=== PATIENT | male | born 1965 | race Caucasian/White ===

== ENCOUNTER 2020-10-21 23:04 | Inpatient (IN) | payer MEDICAID, OTHER ==
--- NOTE | 2020-10-22 00:08 | ED ---
General Adult HPI - General Source: patient, EMS Mode of arrival: EMS <Kamaljit Yanes - Last Filed: 10/22/20 04:01> <Rd Salter - Last Filed: 10/22/20 12:46> - General Stated complaint: Mental Health Time Seen by Provider: 10/21/20 23:30 - History of Present Illness Initial comments: 51-year-old male with generally unknown past medical history but does include a degree of psychiatric history presents to the emergency room for medical evaluation. Patient went missing from his adult foster care facility called [facility] on October 08. He has not been using his insulin for his diabetes. He was found at his brother's house in [place] and was brought in by EMS. According to the facility patient has an HDL stating he needs to be at a facility for medical management as he does not care for himself. Patient has no other complaints at this time including shortness of breath, chest pain, abdominal pain, nausea or vomiting, headache, or visual changes. (Kamaljit Yanes) - Related Data Allergies Allergy/AdvReac Type Severity Reaction Status Date / Time No Known Allergies Allergy Verified 10/22/20 00:02 Review of Systems ROS Other: All systems not noted in ROS Statement are negative. <Kamaljit Yanes - Last Filed: 10/22/20 04:01> ROS Other: All systems not noted in ROS Statement are negative. <Rd Salter - Last Filed: 10/22/20 12:46> ROS Statement: Those systems with pertinent positive or pertinent negative responses have been documented in the HPI. Past Medical History Past Medical History: Diabetes Mellitus History of Any Multi-Drug Resistant Organisms: None Reported Past Surgical History: No Surgical Hx Reported Past Psychological History: Schizophrenia Smoking Status: Current every day smoker Past Alcohol Use History: None Reported Past Drug Use History: None Reported <Kamaljit Yanes - Last Filed: 10/22/20 04:01> Course <Kamaljit Yanes - Last Filed: 10/22/20 04:01> <Rd Salter - Last Filed: 10/22/20 12:46> Vital Signs 10/21/20 10/22/20 23:13 09:21 Temperature 98.7 F Pulse Rate 103 H Respiratory 18 Rate Blood Pressure 128/51 137/84 O2 Sat by Pulse 97 Oximetry - Reevaluation(s) Reevaluation #1: 10/22/20 00:08 I did attempt to get copy of this order from both patient's home laundrette owner as well as [facility]. They're both unwilling to fax this as they do not have fax machines at their house and it is nighttime. Recommend calling the public guardian who is not answering after two voicemails. 10/22/20 04:01 Patient's legal guardian did call back. Reports that he has been missing for 2 weeks and he does have an order an [facility] to be held at a medical [facility]. She is also unable to fax this order. Reports that he has not been caring for himself or taking his medications. Reports he has a history of schizophrenia. (Kamaljit Yanes) Reevaluation #2: 10/22/20 00:31 Spoke with legal guarding lead web application developer who also cannot send DELMAR but reports patient is court ordered to be in a medical facility. She reports that she is in the office at 8 AM and can send it at that time. (Kamaljit Yanes) Reevaluation #3: 10/22/20 12:45 The patient has been resting comfortably in the emergency department he was evaluated by the EPS service he will be admitted for inpatient evaluation and treatment of acute psychosis NOS a clinical certification was filled out by me. (Rd Salter) Medical Decision Making - Lab Data Result diagrams: 10/22/20 00:28 10/22/20 00:28 <Kamaljit Yanes - Last Filed: 10/22/20 04:01> - Lab Data Result diagrams: 10/22/20 00:28 10/22/20 00:28 <Rd Salter - Last Filed: 10/22/20 12:46> - Medical Decision Making Discussed this case with several individuals including patient's [employer] laundrette owner, [facility] employee, and public guardian. They'll report the patient does have an order to be held in a medical facility but they are all unable to fax's order. Report that patient is not taking his medications. Patient apparently has a history of schizophrenia. He is delusional at bedside stating he has a psychiatrist. Patient was medically cleared and seen by EPS. Currently recommending inpatient treatment given patient is not caring for himself, is having delusions, is not following court orders. (Kamaljit Yanes) - Lab Data Lab Results 10/22/20 10/22/20 10/22/20 Range/Units 00:28 00:28 00:28 WBC 7.9 (3.8-10.6) k/uL RBC 4.77 (4.30-5.90) m/uL Hgb 13.7 (13.0-17.5) gm/dL Hct 41.7 (39.0-53.0) % MCV 87.5 (80.0-100.0) fL MCH 28.8 (25.0-35.0) pg MCHC 32.9 (31.0-37.0) g/dL RDW 16.0 H (11.5-15.5) % Plt Count 173 (150-450) k/uL MPV 7.9 Neutrophils % 65 % Lymphocytes % 26 % Monocytes % 5 % Eosinophils % 2 % Basophils % 1 % Neutrophils # 5.1 (1.3-7.7) k/uL Lymphocytes # 2.1 (1.0-4.8) k/uL Monocytes # 0.4 (0-1.0) k/uL Eosinophils # 0.2 (0-0.7) k/uL Basophils # 0.0 (0-0.2) k/uL Sodium 139 (137-145) mmol/L Potassium 3.8 (3.5-5.1) mmol/L Chloride 104 (98-107) mmol/L Carbon Dioxide 25 (22-30) mmol/L Anion Gap 10 mmol/L BUN 24 H (9-20) mg/dL Creatinine 1.01 (0.66-1.25) mg/dL Est GFR (CKD-EPI)AfAm >90 (>60 ml/min/1.73 sqM) Est GFR (CKD-EPI)NonAf 85 (>60 ml/min/1.73 sqM) Glucose 211 H (74-99) mg/dL Calcium 9.6 (8.4-10.2) mg/dL Total Bilirubin 0.3 (0.2-1.3) mg/dL AST 27 (17-59) U/L ALT 31 (4-49) U/L Alkaline Phosphatase 70 (38-126) U/L Total Protein 7.3 (6.3-8.2) g/dL Albumin 4.2 (3.5-5.0) g/dL Urine Color Yellow Urine Appearance Clear (Clear) Urine pH 5.5 (5.0-8.0) Ur Specific [place] 1.025 (1.001-1.035) Urine Protein Negative (Negative) Urine Glucose (UA) 4+ H (Negative) Urine Ketones Trace H (Negative) Urine Blood Trace H (Negative) Urine Nitrite Negative (Negative) Urine Bilirubin Negative (Negative) Urine Urobilinogen 2.0 (<2.0) mg/dL Ur Leukocyte Esterase Negative (Negative) Urine RBC 1 (0-5) /hpf Urine WBC 1 (0-5) /hpf Urine Mucus Rare H (None) /hpf Serum Alcohol <10 mg/dL Coronavirus (PCR) (Not Detectd) 10/22/20 Range/Units 05:50 WBC (3.8-10.6) k/uL RBC (4.30-5.90) m/uL Hgb (13.0-17.5) gm/dL Hct (39.0-53.0) % MCV (80.0-100.0) fL MCH (25.0-35.0) pg MCHC (31.0-37.0) g/dL RDW (11.5-15.5) % Plt Count (150-450) k/uL MPV Neutrophils % % Lymphocytes % % Monocytes % % Eosinophils % % Basophils % % Neutrophils # (1.3-7.7) k/uL Lymphocytes # (1.0-4.8) k/uL Monocytes # (0-1.0) k/uL Eosinophils # (0-0.7) k/uL Basophils # (0-0.2) k/uL Sodium (137-145) mmol/L Potassium (3.5-5.1) mmol/L Chloride (98-107) mmol/L Carbon Dioxide (22-30) mmol/L Anion Gap mmol/L BUN (9-20) mg/dL Creatinine (0.66-1.25) mg/dL Est GFR (CKD-EPI)AfAm (>60 ml/min/1.73 sqM) Est GFR (CKD-EPI)NonAf (>60 ml/min/1.73 sqM) Glucose (74-99) mg/dL Calcium (8.4-10.2) mg/dL Total Bilirubin (0.2-1.3) mg/dL AST (17-59) U/L ALT (4-49) U/L Alkaline Phosphatase (38-126) U/L Total Protein (6.3-8.2) g/dL Albumin (3.5-5.0) g/dL Urine Color Urine Appearance (Clear) Urine pH (5.0-8.0) Ur Specific [place] (1.001-1.035) Urine Protein (Negative) Urine Glucose (UA) (Negative) Urine Ketones (Negative) Urine Blood (Negative) Urine Nitrite (Negative) Urine Bilirubin (Negative) Urine Urobilinogen (<2.0) mg/dL Ur Leukocyte Esterase (Negative) Urine RBC (0-5) /hpf Urine WBC (0-5) /hpf Urine Mucus (None) /hpf Serum Alcohol mg/dL Coronavirus (PCR) Not Detected (Not Detectd) Disposition Is patient prescribed a controlled substance at d/c from ED?: No Time of Disposition: 04:04 <Kamaljit Yanes - Last Filed: 10/22/20 04:01> <Rd Salter - Last Filed: 10/22/20 12:46> Clinical Impression: Delusional disorder, Acute psychosis Disposition: TRANSFER TO PSYCH HOSP/UNIT Condition: Fair
[2020-10-22] MEDS ORDERED: NICOTINE 14MG/24HR PATCH TRANSDERM STA (00:30)
[2020-10-22 00:52] LABS: Basophils % (A) 1 %; Eosinophils # (A) 0.2 k/uL (0-0.7); Eosinophils % (A) 2 %; HCT 41.7 % (39.0-53.0); HGB 13.7 gm/dL (13.0-17.5); Lymphocytes # (A) 2.1 k/uL (1.0-4.8); Lymphocytes % (A) 26 %; MCH 28.8 pg (25.0-35.0); MCHC 32.9 g/dL (31.0-37.0); MCV 87.5 fL (80.0-100.0); Mean Platelet Volume 7.9; Monocytes # (A) 0.4 k/uL (0-1.0); Monocytes % (A) 5 %; Neutrophils # (A) 5.1 k/uL (1.3-7.7); Neutrophils % (A) 65 %; Platelet Count 173 k/uL (150-450); RBC 4.77 m/uL (4.30-5.90); WBC 7.9 k/uL (3.8-10.6)
[2020-10-22 01:02] LABS: ALT 31 U/L (4-49); AST 27 U/L (17-59); African American GFR (CKD) >90 (>60 ml/min/1.73 sqM); Albumin 4.2 g/dL (3.5-5.0); Alcohol <10 mg/dL; Alkaline Phosphatase 70 U/L (38-126); Anion Gap 10 mmol/L; Blood Urea Nitrogen 24 mg/dL (9-20); Calcium 9.6 mg/dL (8.4-10.2); Carbon Dioxide 25 mmol/L (22-30); Chloride 104 mmol/L (98-107); Glucose 211 mg/dL (74-99); Non-African American GFR(CKD) 85 (>60 ml/min/1.73 sqM); Potassium 3.8 mmol/L (3.5-5.1); Sodium 139 mmol/L (137-145); Total Bilirubin 0.3 mg/dL (0.2-1.3); Total Protein 7.3 g/dL (6.3-8.2)
[2020-10-22 01:27] LABS: Appearance,Urine Clear (Clear); Bilirubin,Urine Negative (Negative); Blood,Urine Trace (Negative); Color,Urine Yellow; Glucose,Urine (UA) 4+ (Negative); Ketones,Urine Trace (Negative); Leukocyte Esterase,Urine Negative (Negative); Mucus,Urine Rare /hpf; Nitrite,Urine Negative (Negative); PH, Urine 5.5 (5.0-8.0); Protein,Urine Negative (Negative); RBC,Urine 1 /hpf (0-5); Specific Gravity,Urine 1.025 (1.001-1.035); WBC,Urine 1 /hpf (0-5)
[2020-10-22] MEDS ORDERED: LORazepam 1 MG TAB PO STA (01:37)
[2020-10-22] MEDS ORDERED: ACETAMINOPHEN TAB 325 MG TAB PO PRN (12:45)
[2020-10-22] MEDS ORDERED: MAGNESIUM HYDROXIDE 2,400 MG/10 ML CUP PO PRN (12:45)
[2020-10-22] MEDS ORDERED: LORazepam 1 MG TAB PO PRN (12:45)
[2020-10-22 12:46] LABS: Amphetamine Screen,Urine Not Detected (NotDetected); Barbiturate Screen,Urine Not Detected (NotDetected); Benzodiazepines Screen,Urine Not Detected (NotDetected); Cocaine Screen,Urine Not Detected (NotDetected); Methadone Screen, Urine Not Detected (NotDetected); Opiate Screen,Urine Not Detected (NotDetected); Oxycodone Screen, Urine Not Detected (NotDetected); Phencyclidine Screen,Urine Not Detected (NotDetected); Tricyclic Antidepressant,Urine Not Detected (NotDetected); Urn Cannabinoid Scrn Not Detected (NotDetected)
[2020-10-22] MEDS ORDERED: LORazepam 2 MG/ML INJ IM PRN (12:53)
[2020-10-22] MEDS ORDERED: HALOPERIDOL LACTATE 5 MG/ML 1 ML VIAL IM PRN (12:59)
[2020-10-22 13:00] LABS: Glucose,Whole Blood 204 mg/dL (75-99)
[2020-10-23] MEDS: MAG HYDROX/AL HYDROX/SIMETH 30 ML CUP PO PRN (03:24)
[2020-10-23 05:09] LABS: Cholesterol 206 mg/dL (<200); HDL Cholesterol 25 mg/dL (40-60); Triglycerides 470 mg/dL (<150)
[2020-10-23] MEDS: NICOTINE 14MG/24HR PATCH TRANSDERM SCH (07:43)
[2020-10-23 07:52] LABS: Glucose,Whole Blood 154 mg/dL (75-99)
--- NOTE | 2020-10-23 11:21 | P.HP ---
Psychiatric H&P - . H&P Date: 10/23/20 History & Physical: Allergies Allergy/AdvReac Type Severity Reaction Status Date / Time No Known Allergies Allergy Verified 10/22/20 15:04 Vital Signs Temp 97.7 F 10/23/20 03:25 Pulse 89 10/23/20 03:25 Resp 18 10/23/20 03:25 BP 150/67 10/23/20 03:25 Pulse Ox 98 10/22/20 13:40 Intake & Output 10/22/20 10/23/20 10/23/20 18:59 06:59 18:59 Weight 90.6 kg Laboratory Last Values WBC 7.9 k/uL (3.8-10.6) 10/22/20 00:28 RBC 4.77 m/uL (4.30-5.90) 10/22/20 00:28 Hgb 13.7 gm/dL (13.0-17.5) 10/22/20 00:28 Hct 41.7 % (39.0-53.0) 10/22/20 00:28 MCV 87.5 fL (80.0-100.0) 10/22/20 00:28 MCH 28.8 pg (25.0-35.0) 10/22/20 00:28 MCHC 32.9 g/dL (31.0-37.0) 10/22/20 00:28 RDW 16.0 % (11.5-15.5) H 10/22/20 00:28 Plt Count 173 k/uL (150-450) 10/22/20 00:28 MPV 7.9 10/22/20 00:28 Neutrophils % 65 % 10/22/20 00:28 Lymphocytes % 26 % 10/22/20 00:28 Monocytes % 5 % 10/22/20 00:28 Eosinophils % 2 % 10/22/20 00:28 Basophils % 1 % 10/22/20 00:28 Neutrophils # 5.1 k/uL (1.3-7.7) 10/22/20 00:28 Lymphocytes # 2.1 k/uL (1.0-4.8) 10/22/20 00:28 Monocytes # 0.4 k/uL (0-1.0) 10/22/20 00:28 Eosinophils # 0.2 k/uL (0-0.7) 10/22/20 00:28 Basophils # 0.0 k/uL (0-0.2) 10/22/20 00:28 Sodium 139 mmol/L (137-145) 10/22/20 00: Potassium 3.8 mmol/L (3.5-5.1) 10/22/20 00: Chloride 104 mmol/L (98-107) 10/22/20 00: Carbon Dioxide 25 mmol/L (22-30) 10/22/20 00: Anion Gap 10 mmol/L 10/22/20 00: BUN 24 mg/dL (9-20) H 10/22/20 00:28 Creatinine 1.01 mg/dL (0.66-1.25) 10/22/20: Est GFR (CKD-EPI)AfAm >90 (>60 ml/min/1.73 sqM) 10/22/20 00: Est GFR (CKD-EPI)NonAf 85 (>60 ml/min/1.73 sqM) 10/22/20 00: Glucose 211 mg/dL (74-99) H 10/22/20 00:28 POC Glucose (mg/dL) 154 mg/dL (75-99) H 10/23/20 07:48 POC Glu Assembly Line Leader ID Reva Moe 10/23/20 07:48 Calcium 9.6 mg/dL (8.4-10.2) 10/22/20 00:28 Total Bilirubin 0.3 mg/dL (0.2-1.3) 10/22/20 00:28 AST 27 U/L (17-59) 10/22/20 00: ALT 31 U/L (4-49) 10/22/20 00:28 Alkaline Phosphatase 70 U/L (38-126) 10/22/20 00:28 Total Protein 7.3 g/dL (6.3-8.2) 10/22/20: Albumin 4.2 g/dL (3.5-5.0) 10/22/20 00:28 Triglycerides 470 mg/dL (<150) H 10/22/20 00:28 Cholesterol 206 mg/dL (<200) H 10/22/20 00:28 LDL Cholesterol, Calc mg/dL (0-99) 10/22/20 00:28 HDL Cholesterol 25 mg/dL (40-60) L 10/22/20 00:28 Urine Color Yellow 10/22/20 00: Urine Appearance Clear (Clear) 10/22/20: Urine pH 5.5 (5.0-8.0) 10/22/20:28 Ur Specific [place] 1.025 (1.001-1.035) 10/22/20:28 Urine Protein Negative (Negative) 10/22/20: Urine Glucose (UA) 4+ (Negative) H 10/22/20:28 Urine Ketones Trace (Negative) H 10/22/20 00: Urine Blood Trace (Negative) H 10/22/20: Urine Nitrite Negative (Negative) 10/22/20: Urine Bilirubin Negative (Negative) 10/22/20: Urine Urobilinogen 2.0 mg/dL (<2.0) 10/22/20:28 Ur Leukocyte Esterase Negative (Negative) 10/22/20: Urine RBC 1 /hpf (0-5) 10/22/20: Urine WBC 1 /hpf (0-5) 10/22/20 00:28 Urine Mucus Rare /hpf (None) H 10/22/20 00:28 Urine Opiates Screen Not Detected (NotDetected) 10/22/20 12:24 Ur Oxycodone Screen Not Detected (NotDetected) 10/22/20 12:24 Urine Methadone Screen Not Detected (NotDetected) 10/22/20 12:24 Ur Propoxyphene Screen Not Detected (NotDetected) 10/22/20 12:24 Ur Barbiturates Screen Not Detected (NotDetected) 10/22/20 12:24 U Tricyclic Antidepress Not Detected (NotDetected) 10/22/20 12:24 Ur Phencyclidine Scrn Not Detected (NotDetected) 10/22/20 12:24 Ur Amphetamines Screen Not Detected (NotDetected) 10/22/20 12:24 U Methamphetamines Scrn Not Detected (NotDetected) 10/22/20 12:24 U Benzodiazepines Scrn Not Detected (NotDetected) 10/22/20 12:24 Urine Cocaine Screen Not Detected (NotDetected) 10/22/20 12:24 U Marijuana (THC) Screen Not Detected (NotDetected) 10/22/20 12:24 Serum Alcohol <10 mg/dL 10/22/20 00:28 Coronavirus (PCR) Not Detected (Not Detectd) 10/22/20 05:50 10/23/20 11:02 Reason for admission: This patient has a history of schizophrenia. He was not caring for himself and not taking his medication. He was missing for 2 weeks. According to his legal guardian he has a order at [facility] for him to be held at a medical facility. History of present illness: This 51-year-old male who is not keeping up with his hygiene and grooming was seen in his room. He told me he did not need to see anybody. He stated he does not want to talk about anything. He was admitted because of not taking his medication, not following the court order and was missing for 2 weeks. 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 He stated police brought me here and then said "ambulance brought him here". He stated he is a better doctor than anybody else and can treat himself so there is no need for him to talk to anybody. Past history: This patient refused to provide any history of past psychiatric problems. I tried to go back in his record however I could not find any information on him from any previous admissions. Family history: He denied any history of alcohol or drugs in the family. He stated that "I should stop bothering him because there is nothing wrong with him". He stated he wants to go to sleep and wants me to leave him alone. Medical history: He does not appear to be in any acute physical distress but he refused to talk about any medical problems if he has any. Social history: This patient has a legal guardian. His legal guardian reported that he has been missing for 2 weeks and he does have a court order at [facility] for him to be held at a medical facility. Patient did report to the emergency room doctor that he has schizophrenia and has been taking medication for that. It is unclear but medication if any he was taking. Medication history: Patient refused to provide any such history at present. Substance abuse history: Patient refused to provide any history of alcohol or drug abuse or any other substance abuse disorder history. Legal history: Patient denied if he has any problem with law or police. ALLERGIES: He denied if he was ALLERGIC to any medications. Mental status examination: This patient is somewhat drowsy and has very poor hygiene and grooming. His matt is a long and unkempt. He is oriented to time place and person. He has adequate speech and language skills but he does not want to communicate and does not want to talk about any of his problems. His behavior is uncooperative his mood is blank and affect is flattened. He refused to give me any history of any auditory or visual hallucinations. His impulse control is poor and his judgment is poor as well. I was not able to assess his memory and other cognitive function because he will not cooperate with me. He is at increased risk for hurting himself. Diagnostic impression: Schizophrenia chronic undifferentiated type Treatment recommendations: He will be prescribed an antipsychotic medication. He will be encouraged to participate in milieu activities. He will be encouraged to take care of his hygiene and grooming.
[2020-10-23 18:26] LABS: Hemoglobin A1C 6.1 % (4.0-6.0)
[2020-10-23] MEDS: haloperidoL 5 MG TAB PO SCH (21:17)
--- NOTE | 2020-10-24 03:49 | P.MDCNMH ---
History of Present Illness H&P Date: 10/23/20 Chief Complaint: medical evaluation 51-year-old male claims that he has no past medical history. 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 Patient was interested in discussing his medical concerns with me but then he started talking about having toothpicks in his body running inside his blood vessels and one stuck inside his toes and he is asking about my opinion on the best way to remove them. Patient was also complaining of some itching in his upper back and erythema RV ring patient medical records it seems like patient has history of possible diabetes, blood work did reflect hyperlipidemia. Otherwise patient did not admit to any past medical history Other than the complaint above regarding the toothpicks, patient denies any medical concerns Review of Systems ROS unobtainable: due to mental status Past Medical History Past Medical History: Diabetes Mellitus Additional Past Medical History / Comment(s): He denied having diabetes. Reported numbness in right foot since 2004. 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 Past Psychological History: Schizophrenia Smoking Status: Current every day smoker Past Alcohol Use History: None Reported Past Drug Use History: None Reported Medications and Allergies Home Medications Medication Instructions Recorded Confirmed Type Unable To Assess [Unable to Assess] 10/22/20 10/22/20 History Allergies Allergy/AdvReac Type Severity Reaction Status Date / Time No Known Allergies Allergy Verified 10/22/20 15:04 Physical Exam Constitutional: No acute distress, conversant, pleasant Eyes: Anicteric sclerae, moist conjunctiva, Pupils equal round reactive to light ENMT: NC/AT Oropharynx clear, no erythema, or exudates Neck: Supple, FROM, no masses, or JVD No carotid bruits No thyromegaly Lungs: Clear to auscultation Clear to percussion Normal respiratory effort, no accessory muscle use Cardiovascular: Heart regular in rate and rhythm, No murmurs, gallops, or rubs No peripheral edema Abdominal: Soft Nontender, no guarding, rebound or rigidity Abdomen moving with respiration Normoactive bowel sounds No hepatomegaly, No splenomegaly No palpable mass No abdominal wall hernia noted Skin: Normal temperature, tone, texture, turgor No induration No subcutaneous nodules No rash, lesions No ulcers Extremities: Upper back examination did not show any evidence of erythema or rashes that the patient was claiming that he had . Amputation of the right fourth toe , No digital cyanosis No clubbing Pedal pulses intact and symmetrical Radial pulses intact and symmetrical No calf tenderness Psychiatric: Alert and oriented to person, place and time Appropriate affect fair judgement Neuro Muscles Strength 5/5 in all 4 extremities Sensation to light touch grossly present throughout Cranial nerves II-XII grossly intact No focal sensory deficits Lymphatics: no palpable cervical or supraclavicular , or inguinal lymph nodes Cranial Nerve Examination - Cranial Nerves Cranial Nerve II- Optic: Intact Cranial Nerve III- Oculomotor: Intact Cranial Nerve IV- Trochlear: Intact Cranial Nerve V- Trigeminal: Intact Cranial Nerve - Abducens: Intact Cranial Nerve VII- Facial: Intact Cranial Nerve VIII- Auditory: Intact Cranial Nerve IX- Glossopharyngeal: Intact Cranial Nerve X- Vagus: Intact Cranial Nerve XI- Accessory: Intact Cranial Nerve XII- Hypoglossal: Intact Results CBC & Chem 7: 10/22/20 00:28 10/22/20 00:28 Labs: Abnormal Lab Results - Last 24 Hours (Table) 10/22/20 10/22/20 10/23/20 Range/Units 00:28 00:28 07:48 POC Glucose (mg/dL) 154 H (75-99) mg/dL Hemoglobin A1c 6.1 H (4.0-6.0) % Triglycerides 470 H (<150) mg/dL Cholesterol 206 H (<200) mg/dL HDL Cholesterol 25 L (40-60) mg/dL Assessment and Plan Assessment: Prediabetes versus diabetes mellitus well-controlled I suggest starting the patient on metformin 500 twice a day Continue to follow up on A1c and blood sugars Hyperlipidemia I suggest starting the patient on atorvastatin 10 mg daily at bedtime and to follow up with outpatient PCP Delusional ideation management per psych Thank you for allowing us to participate in the care of this patient. We will follow peripherally. Do not hesitate to contact us with questions. Someone can be reached from the [facility] [place] hospitalist group at all hours of the day at [phone].
[2020-10-24 08:14] LABS: Glucose,Whole Blood 145 mg/dL (75-99)
[2020-10-24] MEDS: haloperidoL 5 MG TAB PO SCH ×2 (08:15→22:23)
[2020-10-24] MEDS: metFORMIN 500 MG TAB PO SCH ×2 (08:15→16:34)
[2020-10-24] MEDS: NICOTINE 14MG/24HR PATCH TRANSDERM SCH (08:15)
--- NOTE | 2020-10-24 13:17 | P.PN ---
Progress Note - Text Progress Note Date: 10/24/20 Interval History: Patient was seen in his room and was non directable. He is laying in his bed covered with sheets and refuses to talk to me. This patient was missing from his adult foster care facility for the last 2 weeks. He was not using his insulin for his diabetes. He was brought here by emergency medical services. He has a court order for him to be held at a medical facility. This patient has a history of schizophrenia. Patient has been compliant with meds. Mental Status Exam: General Appearance: Patient appears to be lethargic and uncooperative. Behavior: Patient is not showing any agitated behaviors. Speech: Patient's speech is a hardly productive. Mood/Affect: Mood is blank and affect is flat. Suicidality/Homicidality: Patient denies having any suicidal or homicidal ideation intent or plan. Perceptions: Patient denies any visual hallucinations and denies any auditory hallucinations Though content/process: Patient has severe disorder of thought process. Memory and concentration: AOX3, memory and concentration are poor Judgment and insight: Patient has no insight into his problems and his judgment is impaired Assessment This patient continues to show severe symptoms of psychosis and is a high risk for hurting himself. Plan: -Patient continues to meet criteria for inpatient psychiatric admission for symptom stabilization and safety. -Medications: Continue medication as prescribed -When necessary Ativan and Haldol for agitation/aggression. -SW on board for discharge planning. Encouraged the patient to participate in milieu.
[2020-10-24] MEDS ORDERED: ATORVASTATIN 10 MG TAB PO SCH (21:00)
[2020-10-25] MEDS: metFORMIN 500 MG TAB PO SCH ×2 (09:04→17:33)
[2020-10-25] MEDS: NICOTINE 14MG/24HR PATCH TRANSDERM SCH (09:04)
[2020-10-25] MEDS: haloperidoL 5 MG TAB PO SCH ×2 (09:04→21:34)
[2020-10-25] MEDS ORDERED: HALOPERIDOL LACTATE 5 MG/ML 1 ML VIAL IM PRN (11:46)
--- NOTE | 2020-10-25 11:50 | P.PN ---
Progress Note - Text Progress Note Date: 10/25/20 Interval History: Patient was seen resting in bed, and refuse to get out of bed to talk with this provider. The patient answered questions intermittently. Currently, the patient is refusing to provide any history of events leading to this hospitalization. 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 He is currently denying any suicidal or homicidal ideation, intention, and/or plan. He is not reporting any auditory or visual hallucinations. He appears to be very guarded and refuses to elaborate on any other psychiatric symptoms. Mental Status Exam: General Appearance: Patient appears to be stated age is alert, undirectable, and uncooperative. He appears disheveled. Behavior: Psychomotor slowing is evident. The patient makes no eye contact. He remains covered with his blankets covering his eyes with a shirt. Speech: Patient's speech is nonspontaneous, minimal, monotone. Mood/Affect: Mood is irritable. Affect is mood congruent and obstinate. He is very guarded. Suicidality/Homicidality: Patient denies having any suicidal or homicidal ideation intent or plan. Perceptions: Patient denies any visual hallucinations and denies any auditory hallucinations Though content/process: Appears to endorse some grandiose and bizarre delusions. Memory and concentration: unable to assess. Judgment and insight: very poor Assessment Schizophrenia Plan: -Patient continues to meet criteria for inpatient psychiatric admission for symptom stabilization and safety. Patient is currently under court order for mental health treatment. -Medications: Continue Haldol 5 mg by mouth twice a day for psychosis. As the patient is c urrently under a court order, if the patient refuses Haldol, he is due to receive Haldol lactate 3 mg IM. We will gradually titrate his medications and response to target symptoms. -When necessary Ativan and Haldol for agitation/aggression. -NRT - nicotine patch -SW on board for discharge planning. Encouraged the patient to participate in milieu.
[2020-10-25 13:01] LABS: Glucose,Whole Blood 253 mg/dL (75-99)
[2020-10-25 17:42] LABS: Glucose,Whole Blood 214 mg/dL (75-99)
[2020-10-25 20:17] LABS: Glucose,Whole Blood 251 mg/dL (75-99)
[2020-10-25] MEDS: INSULIN ASPART (NovoLOG) 100 UNIT/ML VIAL SQ SCH (21:34)
[2020-10-25] MEDS: ATORVASTATIN 40 MG TAB PO SCH (21:34)
[2020-10-25 21:38] LABS: Glucose,Whole Blood 284 mg/dL (75-99)
[2020-10-26 08:10] LABS: Glucose,Whole Blood 253 mg/dL (75-99)
[2020-10-26] MEDS: metFORMIN 500 MG TAB PO SCH ×2 (08:10→17:05)
[2020-10-26] MEDS: INSULIN ASPART (NovoLOG) 100 UNIT/ML VIAL SQ SCH ×4 (08:11→20:03)
[2020-10-26] MEDS: NICOTINE 14MG/24HR PATCH TRANSDERM SCH (08:13)
[2020-10-26] MEDS: haloperidoL 5 MG TAB PO SCH ×2 (08:13→22:50)
--- NOTE | 2020-10-26 11:44 | P.PN ---
Progress Note - Text Progress Note Date: 10/26/20 Interval History: Patient was seen resting in bed, and refuse to get out of bed to talk with this provider. The patient continues to be intermittently cooperative with this provider. Yesterday afternoon, the patient was calm and friendly and polite at this morning continues to be obstinate and refuses to participate in the psychiatric interview with much substance. He is not reporting any suicidal or homicidal ideation, intention, and/or plan. He is not reporting any auditory or visual hallucinations. He is denying any paranoia or other delusions at this time. He refuses to elaborate on his mental health history. He has been refusing medications despite being court ordered. Mental Status Exam: General Appearance: Patient appears to be stated age is alert, undirectable, and uncooperative. He appears disheveled. Behavior: Psychomotor slowing is evident. The patient makes no eye contact. He remains covered with his blankets covering his eyes with a shirt. Speech: Patient's speech is nonspontaneous, minimal, monotone. Mood/Affect: Mood is irritable. Affect is mood congruent and obstinate. patient continues to be guarded. Suicidality/Homicidality: Patient denies having any suicidal or homicidal ideation intent or plan. Perceptions: Patient denies any visual hallucinations and denies any auditory hallucinations Though content/process: Appears to endorse some grandiose and bizarre delusions. Memory and concentration: unable to assess. Judgment and insight: very poor Assessment Schizophrenia Plan: -Patient continues to meet criteria for inpatient psychiatric admission for symptom stabilization and safety. Patient is currently under court order for mental health treatment. -Medications: Continue Haldol 5 mg by mouth twice a day for psychosis. As the patient is currently under a court order, if the patient refuses Haldol, he is due to receive Haldol lactate 3 mg IM. We will gradually titrate his medications and response to target symptoms. -When necessary Ativan and Haldol for agitation/aggression. -NRT - nicotine patch -SW on board for discharge planning. Encouraged the patient to participate in milieu.
[2020-10-26 12:54] LABS: Glucose,Whole Blood 333 mg/dL (75-99)
[2020-10-26 12:56] LABS: Glucose,Whole Blood 324 mg/dL (75-99)
[2020-10-26 17:34] LABS: Glucose,Whole Blood 275 mg/dL (75-99)
[2020-10-26 20:03] LABS: Glucose,Whole Blood 313 mg/dL (75-99)
[2020-10-26] MEDS: ATORVASTATIN 40 MG TAB PO SCH (22:50)
[2020-10-27] MEDS: MAG HYDROX/AL HYDROX/SIMETH 30 ML CUP PO PRN (00:33)
[2020-10-27] MEDS: metFORMIN 500 MG TAB PO SCH ×2 (08:05→17:40)
[2020-10-27] MEDS: INSULIN ASPART (NovoLOG) 100 UNIT/ML VIAL SQ SCH ×4 (08:09→19:56)
[2020-10-27] MEDS: haloperidoL 5 MG TAB PO SCH ×3 (08:10→21:11)
[2020-10-27 08:13] LABS: Glucose,Whole Blood 192 mg/dL (75-99)
[2020-10-27] MEDS: NICOTINE 14MG/24HR PATCH TRANSDERM SCH (08:17)
[2020-10-27] MEDS ORDERED: HALOPERIDOL LACTATE 5 MG/ML 1 ML VIAL IM PRN (11:08)
--- NOTE | 2020-10-27 11:12 | P.PN ---
Progress Note - Text Progress Note Date: 10/27/20 Interval History: Patient was seen resting in bed, and refused to get out of bed to talk with this provider. 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 When asked him about the events in his hospitalization confronting them at the fact that he was in a intermediate and disappeared for 2 weeks, but patient refuses to further elaborate. He is currently not reporting any suicidal or homicidal ideation, intention, and/or plan. He is not reporting any auditory or visual hallucinations. He continues to be confrontational with this provider and states that he will soon this hospital for "penetrating me." The patient has been receiving Haldol orally after being informed that if he does not do so, he would be receiving IM formulation as he is under court order. Mental Status Exam: General Appearance: Patient appears to be stated age is alert, undirectable, and uncooperative. He appears disheveled. Behavior: Psychomotor slowing is evident. The patient makes no eye contact. He remains covered with his blankets covering his eyes with a shirt. Ambulates with a walker on the unit. Speech: Patient's speech is nonspontaneous, with normal rate, tone, and volume. Mood/Affect: Mood is irritable. Affect is mood congruent and facetious. Patient continues to be guarded. Suicidality/Homicidality: Patient denies having any suicidal or homicidal ideation intent or plan. Perceptions: Patient denies any visual hallucinations and denies any auditory hallucinations Though content/process: Appears to endorse some grandiose and bizarre delusions. Memory and concentration: unable to assess. Judgment and insight: very poor Assessment Schizophrenia Plan: -Patient continues to meet criteria for inpatient psychiatric admission for symptom stabilization and safety. Patient is currently under court order for mental health treatment. -Medications: Continue Haldol 5 mg by mouth twice a day for psychosis. As the patient is currently under a court order, if the patient refuses Haldol, Increased IM Haldol lactate to 4 mg. We will gradually titrate his medications and response to target symptoms. Start Depakote ER 500 mg daily at bedtime for mood stabilization. -When necessary Ativan and Haldol for agitation/aggression. -NRT - nicotine patch -SW on board for discharge planning. Encouraged the patient to participate in milieu.
[2020-10-27 12:46] LABS: Glucose,Whole Blood 175 mg/dL (75-99)
[2020-10-27 17:35] LABS: Glucose,Whole Blood 275 mg/dL (75-99)
[2020-10-27 19:55] LABS: Glucose,Whole Blood 339 mg/dL (75-99)
[2020-10-27] MEDS: ATORVASTATIN 40 MG TAB PO SCH ×2 (21:11→21:18)
[2020-10-27] MEDS: DIVALPROEX ER 500 MG TAB.ER.24H PO SCH ×2 (21:11→21:18)
[2020-10-28] MEDS: haloperidoL 5 MG TAB PO SCH ×2 (08:10→21:53)
[2020-10-28] MEDS: NICOTINE 14MG/24HR PATCH TRANSDERM SCH (08:10)
[2020-10-28] MEDS: metFORMIN 500 MG TAB PO SCH ×2 (08:11→19:00)
[2020-10-28] MEDS: INSULIN ASPART (NovoLOG) 100 UNIT/ML VIAL SQ SCH ×4 (08:12→20:16)
[2020-10-28 08:13] LABS: Glucose,Whole Blood 228 mg/dL (75-99)
--- NOTE | 2020-10-28 10:48 | P.PN ---
Progress Note - Text Progress Note Date: 10/28/20 Interval History: Patient was seen resting in bed, and refused to get out of bed to talk with this provider. Patient was informed that he is likely to be discharged tomorrow after discussion with his family revealed that he is likely at baseline. The patient is currently not reporting any suicidal or homicidal ideation, intention, and/or plan. He is not reporting any auditory or visual hallucinations. He is denying any paranoia or other delusions. The patient continues to refuse any medications and takes the Haldol only under duress when informed that he is under a court order and will receive the injectable form if he refuses oral medication. He refuses the oral Depakote. Patient was informed that he'll be receiving Haldol Decanoate 100 mg IM today. Mental Status Exam: General Appearance: Patient appears to be stated age is alert, undirectable, and uncooperative. He appears disheveled. Behavior: Psychomotor slowing is evident. The patient makes no eye contact. He remains covered with his blankets covering his eyes with a shirt. Ambulates with a walker on the unit. Speech: Patient's speech is nonspontaneous, with normal rate, tone, and volume. Mood/Affect: Mood is irritable. Affect is mood congruent and facetious. Patient continues to be guarded. Suicidality/Homicidality: Patient denies having any suicidal or homicidal ideation intent or plan. Perceptions: Patient denies any visual hallucinations and denies any auditory hallucinations Though content/process: Appears to endorse some grandiose and bizarre delusions. Memory and concentration: unable to assess. Judgment and insight: very poor Assessment Schizophrenia Plan: -Patient continues to meet criteria for inpatient psychiatric admission for symptom stabilization and safety. Patient is currently under court order for mental health treatment. -Medications: Continue Haldol 5 mg by mouth twice a day for psychosis. The patient refuses Haldol, he'll receive injectable form as he is under court order. Start Haldol Decanoate 100 mg IM [id number] today. Discontinue Depakote due to nonadherence -When necessary Ativan and Haldol for agitation/aggression. -NRT - nicotine patch -SW on board for discharge planning. Encouraged the patient to participate in milieu.
[2020-10-28 12:50] LABS: Glucose,Whole Blood 263 mg/dL (75-99)
[2020-10-28] MEDS ORDERED: HALOPERIDOL DECANOATE 100 MG/ML 1 ML VIAL IM SCH (17:00)
[2020-10-28 17:58] LABS: Glucose,Whole Blood 303 mg/dL (75-99)
[2020-10-28 19:42] LABS: Glucose,Whole Blood 316 mg/dL (75-99)
[2020-10-28] MEDS: ATORVASTATIN 40 MG TAB PO SCH (21:53)
[2020-10-29] MEDS: MAG HYDROX/AL HYDROX/SIMETH 30 ML CUP PO PRN ×2 (00:46→05:38)
[2020-10-29 07:14] VITALS: RESP 16
[2020-10-29] MEDS: INSULIN ASPART (NovoLOG) 100 UNIT/ML VIAL SQ SCH ×4 (08:30→21:06)
[2020-10-29] MEDS: metFORMIN 500 MG TAB PO SCH ×2 (08:31→18:00)
[2020-10-29] MEDS: NICOTINE 14MG/24HR PATCH TRANSDERM SCH (08:32)
[2020-10-29 08:36] LABS: Glucose,Whole Blood 185 mg/dL (75-99)
[2020-10-29] MEDS: haloperidoL 5 MG TAB PO SCH ×2 (09:13→22:08)
--- NOTE | 2020-10-29 09:14 | P.PN ---
Progress Note - Text Progress Note Date: 10/29/20 Interval History: Patient was seen resting in bed, and refused to get out of bed to talk with this provider. The patient received his Haldol Decanoate 100 mg IM shot yesterday. He continues to refuse any oral antipsychotic medications. He is not reporting any significant side effects of this injection. He reports that he is sleeping well and eating well. He is not reporting any suicidal or homicidal ideation, intention, and/or plan. He is not reporting any auditory or visual hallucinations. He denies any paranoia or other delusions. The patient continues to request for discharge. He states that he has a cousin he can stay with upon discharge. There is concern about this discharge plan as the patient has a history of disappearing for weeks on end impulsively. Mental Status Exam: General Appearance: Patient appears to be stated age is alert, directable, and cooperative. He appears disheveled. Behavior: Psychomotor slowing is evident. The patient makes no eye contact. He remains covered with his blankets covering his eyes with a shirt. Ambulates w ith a walker on the unit. Speech: Patient's speech is nonspontaneous, with normal rate, tone, and volume. Mood/Affect: Mood is "okay." Affect is blunted. Suicidality/Homicidality: Patient denies having any suicidal or homicidal ideation intent or plan. Perceptions: Patient denies any visual hallucinations and denies any auditory hallucinations Though content/process: The patient is currently denying any paranoid or delusional thought content. Thought process appears to be linear and logical in short conversation. Memory and concentration: Grossly intact for purposes of this session. Judgment and insight: very poor Assessment Schizophrenia Plan: -Patient continues to meet criteria for inpatient psychiatric admission for symptom stabilization and safety. Patient is currently under court order for mental health treatment. -Medications: Patient received Haldol Decanoate 100 mg IM yesterday. It is recommended that the patient receive this dose every 2-3 weeks as the patient is going to refuse any oral medications. We will discontinue oral Haldol. -When necessary Ativan and Haldol for agitation/aggression. -NRT - nicotine patch -SW on board for discharge planning. Encouraged the patient to participate in milieu.
[2020-10-29 12:44] LABS: Glucose,Whole Blood 218 mg/dL (75-99)
[2020-10-29 17:46] LABS: Glucose,Whole Blood 231 mg/dL (75-99)
[2020-10-29 20:31] LABS: Glucose,Whole Blood 332 mg/dL (75-99)
[2020-10-29] MEDS: ATORVASTATIN 40 MG TAB PO SCH (22:07)
[2020-10-30] MEDS: MAG HYDROX/AL HYDROX/SIMETH 30 ML CUP PO PRN (01:25)
[2020-10-30] MEDS: INSULIN ASPART (NovoLOG) 100 UNIT/ML VIAL SQ SCH ×4 (08:33→20:11)
[2020-10-30 08:34] LABS: Glucose,Whole Blood 218 mg/dL (75-99)
[2020-10-30] MEDS: haloperidoL 5 MG TAB PO SCH ×2 (08:34→21:19)
[2020-10-30] MEDS: metFORMIN 500 MG TAB PO SCH ×2 (08:34→17:57)
[2020-10-30 13:23] LABS: Glucose,Whole Blood 220 mg/dL (75-99)
[2020-10-30 17:56] LABS: Glucose,Whole Blood 242 mg/dL (75-99)
[2020-10-30 20:06] LABS: Glucose,Whole Blood 297 mg/dL (75-99)
[2020-10-30] MEDS: ATORVASTATIN 40 MG TAB PO SCH (21:19)
--- NOTE | 2020-10-30 23:00 | PN ---
PROGRESS NOTE DATE OF SERVICE: 10/30/2020. CHIEF COMPLAINT: The patient was functioning poorly. He was not taking medications or following through with court ordered treatment, but had been missing from his [facility] for 2 weeks. INTERVAL HISTORY: The patient has been doing fair. He had a quiet day yesterday. He spends a fair amount of time in his room. He will come out to a limited extent. He will wander around some. He will pay some attention to things going on around him. He does not really interact too much with others. He has been accepting of Haldol Decanoate though elects not to take any oral medications. He did not attend groups yesterday. He slept about 5 hours last night by nursing documentation. Today, he has been doing about the same. He has been out a few times wandering the unit. He will interact appropriately with staff. He does not socialize much. He has a quiet manner. He does not voice any complaints or concerns. When I talked to him, he did not have much to say. He minimized any problems he was having. He denied any side effects or difficulties related to his medications. MENTAL STATUS EXAM: Patient gave fair eye contact. Psychomotor activity was slowed. Speech was monotone. He answered questions with 1 or 2 word responses. He did not say much. His affect was constricted. His mood was reserved. He did not appear to be significantly distressed. There was no clear indication of thought disorder. He voiced no thoughts of harm. He was oriented to his circumstances and surroundings. ASSESSMENT: 1. I will continue the current diagnosis and treatment plan. We will continue to make efforts to engage the patient in individual and group therapeutic activities. He will continue just on Haldol Decanoate and received 100 mg dose on October 28. A primary issue is his placement. Social Work is addressing discharge planning. 2. We will focus on stabilization and will coordinate with outpatient resources. MMODL / IJN: [id number] /
[2020-10-31] MEDS: metFORMIN 500 MG TAB PO SCH ×3 (07:47→21:47)
[2020-10-31] MEDS: haloperidoL 5 MG TAB PO SCH ×3 (07:47→21:36)
[2020-10-31] MEDS: INSULIN ASPART (NovoLOG) 100 UNIT/ML VIAL SQ SCH ×4 (07:48→20:35)
[2020-10-31 07:51] LABS: Glucose,Whole Blood 184 mg/dL (75-99)
[2020-10-31 13:12] LABS: Glucose,Whole Blood 214 mg/dL (75-99)
--- NOTE | 2020-10-31 15:56 | PN ---
PROGRESS NOTE DATE OF SERVICE: 10/31/2020. CHIEF COMPLAINT: The patient was functioning poorly. He was not taking medications or following through with court-ordered treatment, but had been missing from his [facility] for 2 weeks. INTERVAL HISTORY: Patient continues to do about the same. He had a quiet day yesterday. He spends most of the time in his room. He will come out occasionally, though he does not interact too much with others. He mostly spends a fair amount of time in his room and seems to be most comfortable isolating from others. He reports that he slept well last night. Today, when I saw him he has been in his room where he has been most of the day. He did not voice any specific complaints or concerns. He says that he does not like the long-acting injectable medication, though he did not seem to have any other suggestions about medications. Dr. Mane had indicated a plan to stop oral Haldol, though at this point, he has been continued on 5 mg twice a day. He did not have specific complaints about his medications in regard to side effects or difficulties with tolerating medication. MENTAL STATUS EXAM: Patient was in his room lying down. He did not give any eye contact. He was awake. He answered questions with brief responses. Mostly what he focused on was not wanting to get a long-acting injectable. He did not offer much explanation for that. His thoughts were clear and coherent. His affect flat. Mood reserved. It was difficult to say how distressed he may be. It was difficult to assess for thought disorder or thoughts of harm. He was oriented to circumstances and surroundings. ASSESSMENT: I will continue the current diagnosis and treatment plan. I will continue psychotropic medications the same. We will coordinate with [facility] in terms of discharge planning. MMODL / IJN: [id number] /
[2020-10-31 17:59] LABS: Glucose,Whole Blood 253 mg/dL (75-99)
[2020-10-31 20:29] LABS: Glucose,Whole Blood 280 mg/dL (75-99)
[2020-10-31] MEDS: ATORVASTATIN 40 MG TAB PO SCH (21:36)
[2020-11-01 08:48] LABS: Glucose,Whole Blood 203 mg/dL (75-99)
[2020-11-01] MEDS: metFORMIN 500 MG TAB PO SCH ×2 (08:49→21:46)
[2020-11-01] MEDS: INSULIN ASPART (NovoLOG) 100 UNIT/ML VIAL SQ SCH ×4 (08:49→20:03)
[2020-11-01] MEDS: haloperidoL 5 MG TAB PO SCH (08:49)
[2020-11-01 13:11] LABS: Glucose,Whole Blood 247 mg/dL (75-99)
--- NOTE | 2020-11-01 16:44 | PN ---
PROGRESS NOTE DATE OF SERVICE: 11/01/2020 CHIEF COMPLAINT: The patient was functioning poorly. He was not taking medications or following through with court-ordered treatment. He had been missing from his [facility] for 2 weeks. INTERVAL HISTORY: Patient continues to do the same. Most of the time he is in his room. He lies in bed. He will have covers over his head, though most any time staff go in, he is awake and will respond. He comes out on the unit minimally, does not really interact with anyone else. He does not go to groups. He slept well last night. Today he has been the same. When I went to see him, he gave similar responses as in the last 2 interviews. He did not really identify any issues or concerns. He tended to minimize plans in regard to discharge. At team meeting the focus was on identifying appropriate housing. He tolerates his psychotropic medications. He has been choosing not to take his oral Haldol, saying that now that he has IM Decanoate on board, he should not need oral. MENTAL STATUS: Patient gave poor eye contact. Psychomotor activity was slowed. He responded to questions with brief responses. His thoughts were clear, his affect blunted, his mood reserved. It was difficult to say if he was distressed in any way. It was difficult to assess for thought disorder or thoughts of harm. He was oriented to circumstances and surroundings. ASSESSMENT: I will continue the current diagnosis and treatment plan. I will continue the patient just on his Haldol Decanoate. We will discontinue oral Haldol. He may well have an adequate dose of Haldol to see at least some progression in his condition. We are focusing on identifying appropriate housing. MMODL / IJN: [id number] /
[2020-11-01 18:23] LABS: Glucose,Whole Blood 226 mg/dL (75-99)
[2020-11-01 20:00] LABS: Glucose,Whole Blood 267 mg/dL (75-99)
[2020-11-01] MEDS: ATORVASTATIN 40 MG TAB PO SCH (21:12)
[2020-11-02 00:44] VITALS: BP 108/53; PULSE 80; TEMP 98.2
[2020-11-02 07:54] LABS: Glucose,Whole Blood 229 mg/dL (75-99)
[2020-11-02] MEDS: INSULIN ASPART (NovoLOG) 100 UNIT/ML VIAL SQ SCH ×4 (07:56→20:19)
[2020-11-02] MEDS: metFORMIN 500 MG TAB PO SCH ×2 (08:22→17:51)
[2020-11-02 12:44] LABS: Glucose,Whole Blood 265 mg/dL (75-99)
[2020-11-02 13:04] VITALS: BMI 28.5
--- NOTE | 2020-11-02 15:25 | PN ---
PROGRESS NOTE DATE OF SERVICE: 11/02/2020. CHIEF COMPLAINT: The patient was functioning poorly. He was not taking medications or following through with court order treatment. He had been missing from his [facility] for 2 weeks. INTERVAL HISTORY: Patient continues the same. Mostly he stays in his room. He stayed there pretty much all day yesterday. He will come out for meals. He otherwise just prefers to lay in bed. He will interact minimally when staff approach him though he does not make any effort to interact with others. He sleeps at night and then he pretty much stays in bed much of the day. He appears to tolerate his psychotropic medications. MENTAL STATUS: Patient was lying in bed. He did not give much eye contact. He responded to few questions. His thoughts were clear. His affect was flat. His mood quiet, though not clearly down or depressed. He did not appear to be distressed, difficult to assess for thought disorder. He voiced no thoughts of harm. He was oriented to his circumstances and surroundings. When I explained discharge planning with the patient, he seemed to be fairly clear on the details. ASSESSMENT: I will continue the current diagnosis and treatment plan. For psychotropic medications, patient continues just on Haldol Decanoate and has received the 100 mg dose. The plan is to discharge the patient tomorrow morning to [facility]. He will be leaving early in the morning. We will facilitate his departure. The main plan will be for him to continue on Haldol Decanoate. MMAMA / MICH: [id number] /
[2020-11-02 17:48] LABS: Glucose,Whole Blood 278 mg/dL (75-99)
[2020-11-02] MEDS: MAG HYDROX/AL HYDROX/SIMETH 30 ML CUP PO PRN (17:48)
[2020-11-02 20:03] LABS: Glucose,Whole Blood 409 mg/dL (75-99)
[2020-11-02] MEDS ORDERED: INSULIN DETEMIR (LEVEMIR) 100 UNIT/ML SYR SQ SCH (21:00)
[2020-11-02] MEDS: ATORVASTATIN 40 MG TAB PO SCH (21:43)
[2020-11-03] MEDS: MAG HYDROX/AL HYDROX/SIMETH 30 ML CUP PO PRN (04:04)
[2020-11-03 08:14] LABS: Glucose,Whole Blood 234 mg/dL (75-99)
[2020-11-03] MEDS: INSULIN ASPART (NovoLOG) 100 UNIT/ML VIAL SQ SCH (08:16)
[2020-11-03] MEDS: metFORMIN 500 MG TAB PO SCH (08:17)
--- NOTE | 2020-11-03 13:14 | P.DS ---
Providers Date of admission: 10/22/20 12:27 Expected date of discharge: 11/03/20 Attending physician: Gaetano Snell MD Consults: 10/22/20 12:45 Consult Physician Routine Consulting Provider: Royer Peraza Consult Reason/Comments: medical management Do you want consulting provider notified?: Yes Primary care physician: Stated None - Discharge Diagnosis(es) (1) Schizophrenia Current Visit: Yes Status: Acute Hospital Course: Admission HPI: Initial psychiatric evaluation was completed by Dr. Schmitt on 10/23/2020 who wrote: "This patient has a history of schizophrenia. He was not caring for himself and not taking his medication. He was missing for 2 weeks. According to his legal guardian he has a order at [facility] for him to be held at a medical facility. This 51-year-old male who is not keeping up with his hygiene and grooming was seen in his room. He told me he did not need to see anybody. He stated he does not want to talk about anything. He was admitted because of not taking his medication, not following the court order and was missing for 2 weeks. 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 He stated police brought me here and then said "ambulance brought him here". He stated he is a better doctor than anybody else and can treat himself so there is no need for him to talk to anybody. This patient refused to provide any history of past psychiatric problems. I tried to go back in his record however I could not find any information on him from any previous admissions. He denied any history of alcohol or drugs in the family. He stated that "I should stop bothering him because there is nothing wrong with him". He stated he wants to go to sleep and wants me to leave him alone. He does not appear to be in any acute physical distress but he refused to talk about any medical problems if he has any. This patient has a legal guardian. His legal guardian reported that he has been missing for 2 weeks and he does have a court order at [facility] for him to be held at a medical facility. Patient did report to the emergency room doctor that he has schizophrenia and has been taking medication for that. It is unclear but medication if any he was taking." Hospital course: Upon admission to the unit patient was initially obstinate and uncooperative. Patient was under court order refused to participate in treatment or take any medications. The patient was informed that he is under court order and that if he was to refuse oral medications that he would receive IM formulations. The patient began being more adherent with medications shortly after. He did express that he felt like he was being "penetrated" and violated. The patient remained primarily at citrus to himself in his room, only emerging typically for meals. The patient continued to make statements stating that he does not need treatment and that he is his own psychiatrist. He continues to state that no one else is a psychiatrist. The patient's Haldol was titrated up and the patient was administered 100 mg IM of Haldol Decanoate on 10/28/2020. As the patient received this medication, discharge planning was occurring. Patient was to be discharged to [facility]. On the day of dis charge, the patient is not reporting any suicidal or homicidal ideation, intent, and/or plan. He is not reporting any auditory or visualizations. He is denying any paranoia or other delusions. He continues to refuse any oral medications. He will require long-acting injectable medication due to his history of nonadherence. The patient denies any access to firearms or weapons. Patient was counseled at length on importance of following up with his outpatient providers for mental health and for primary care. He is also counseled on the need for adherence with his medication regimen so as to to control his psychotic symptoms and prevent further inpatient psychiatric hospitals additions. Prior to discharge, family meeting will be arranged ensure safety. Mental status exam: General Appearance: Patient appears to be stated age is alert, pleasant, but continues to be intermittently cooperative. Patient is in no acute distress and has fair hygiene and grooming Behavior: Patient is calmly lying down in bed t any agitated behavior. Speech: Patient's speech is fluent and nonpressured. Mood/Affect: Patient reports their mood is "ready to go", affect is congruent and constricted. Suicidality/Homicidality: The patient denies any suicidal or homicidal ideation, intention, and/or plan. Perceptions: Patient denies any auditory or visual hallucinations. Though content/process: There is no evidence of any delusional thought content and thought process is linear and goal-directed. Memory and concentration: AOX3, grossly intact for the purposes of this session. Can spell "WORLD" backwards correctly. Judgment and insight: Improved with guarded prognosis Impression: Schizophrenia Plan: -Continue with discharge today as patient has improved and stabilized psychiatrically and is not currently an imminent threat to himself and/or others. Patient will remain at chronically elevated risk for harm to self and/or others due to his very poor insight and lack of treatment adherence. -Continue medications: Haldol Decanoate 100 mg IM was administered on 10/28/20. Next due on 11/25/20. -Patient was counseled on the need for medication compliance and appropriate follow-up at mental health and also primary care for medical issues. Patient verbalized understanding. -Social work to arrange for and conduct family meeting to ensure safety upon discharge and answer any questions/concerns. Social work also to arrange for patients follow up appointments with [facility] for psychiatric care along with follow up with primary care provider. -Patient counseled on abstaining from recreational drugs and marijuana and alcohol. Was informed/educated on the adverse effects on their physical and mental health. Patient verbally agreed and understood. -Patient was instructed to return to the hospital or seek immediate medical care if their psychiatric or medical symptoms do worsen or reoccur. -Psychoeducation and supportive therapy provided to patient. Risks and benefits of pharmacological treatment versus the risks and benefits of nontreatment weight and discussed. Informed consent discussion held. Common side effects of psychotropics discussed such as, but not limited to headache, GI disturbance, sexual dysfunction, movement disorders, sedation, and orthostatic hypotension. Life threatening and blackbox warnings of prescribed medications also discussed. Potential risks of operating a vehicle or heavy machinery discussed with patient at length. Advised on importance of compliance and a reliable and responsible manner. Patient advised to review FDA consumer labeling of all medications prior to taking. Patient verbalized understanding of potential risks, and agrees with current treatment plan. Patient advised to medically contact physician/emergency personnel if any acute changes in condition occur. Vital Signs Temp 98.2 F 11/02/20 00:42 Pulse 80 11/02/20 00:42 Resp 16 11/02/20 00:42 BP 108/53 11/02/20 00:42 Pulse Ox 98 10/30/20 06:43 Intake & Output 11/02/20 11/03/20 11/03/20 18:59 06:59 18:59 Weight 92.9 kg Laboratory Results WBC 7.9 k/uL (3.8-10.6) 10/22/20 00:28 RBC 4.77 m/uL (4.30-5.90) 10/22/20 00:28 Hgb 13.7 gm/dL (13.0-17.5) 10/22/20 00: Hct 41.7 % (39.0-53.0) 10/22/20: MCV 87.5 fL (80.0-100.0) 10/22/20 00:28 MCH 28.8 pg (25.0-35.0) 10/22/20 00: MCHC 32.9 g/dL (31.0-37.0) 10/22/20 00: RDW 16.0 % (11.5-15.5) H 10/22/20 00:28 Plt Count 173 k/uL (150-450) 10/22/20 00: MPV 7.9 10/22/20 00:28 Neutrophils % 65 % 10/22/20 00:28 Lymphocytes % 26 % 10/22/20 00:28 Monocytes % 5 % 10/22/20 00:28 Eosinophils % 2 % 10/22/20 00: Basophils % 1 % 10/22/20 00:28 Neutrophils # 5.1 k/uL (1.3-7.7) 10/22/20 00:28 Lymphocytes # 2.1 k/uL (1.0-4.8) 10/22/20 00:28 Monocytes # 0.4 k/uL (0-1.0) 10/22/20 00:28 Eosinophils # 0.2 k/uL (0-0.7) 10/22/20 00:28 Basophils # 0.0 k/uL (0-0.2) 10/22/20 00:28 Sodium 139 mmol/L (137-145) 10/22/20 00:28 Potassium 3.8 mmol/L (3.5-5.1) 10/22/20 00:28 Chloride 104 mmol/L (98-107) 10/22/20 00: Carbon Dioxide 25 mmol/L (22-30) 10/22/20 00:28 Anion Gap 10 mmol/L 10/22/20 00: BUN 24 mg/dL (9-20) H 10/22/20 00: Creatinine 1.01 mg/dL (0.66-1.25) 10/22/20: Est GFR (CKD-EPI)AfAm >90 (>60 ml/min/1.73 sqM) 10/22/20: Est GFR (CKD-EPI)NonAf 85 (>60 ml/min/1.73 sqM) 10/22/20: Glucose 211 mg/dL (74-99) H 10/22/20: POC Glucose (mg/dL) 234 mg/dL (75-99) H 11/03/20 08:11 POC Glu [employer] Operator Olinda Ng 11/03/20 08:[address] Glu mg/dL 128 10/22/20: Hemoglobin A1c 6.1 % (4.0-6.0) H 10/22/20: Calcium 9.6 mg/dL (8.4-10.2) 10/22/20: Total Bilirubin 0.3 mg/dL (0.2-1.3) 10/22/20: AST 27 U/L (17-59) 10/22/20: ALT 31 U/L (4-49) 10/22/20: Alkaline Phosphatase 70 U/L (38-126) 10/22/20: Total Protein 7.3 g/dL (6.3-8.2) 10/22/20 Albumin 4.2 g/dL (3.5-5.0) 10/22/20: Triglycerides 470 mg/dL (<150) H 10/22/20: Cholesterol 206 mg/dL (<200) H 10/22/20: LDL Cholesterol, Calc mg/dL (0-99) 10/22/20: HDL Cholesterol 25 mg/dL (40-60) L 10/22/20: Urine Color Yellow 10/22/20: Urine Appearance Clear (Clear) 10/22/20: Urine pH 5.5 (5.0-8.0) 10/22/20:28 Ur Specific [place] 1.025 (1.001-1.035) 10/22/20 00:28 Urine Protein Negative (Negative) 10/22/20 00:28 Urine Glucose (UA) 4+ (Negative) H 10/22/20 00:28 Urine Ketones Trace (Negative) H 10/22/20 00:28 Urine Blood Trace (Negative) H 10/22/20 00:28 Urine Nitrite Negative (Negative) 10/22/20 00:28 Urine Bilirubin Negative (Negative) 10/22/20 00:28 Urine Urobilinogen 2.0 mg/dL (<2.0) 10/22/20 00:28 Ur Leukocyte Esterase Negative (Negative) 10/22/20 00:28 Urine RBC 1 /hpf (0-5) 10/22/20 00:28 Urine WBC 1 /hpf (0-5) 10/22/20 00:28 Urine Mucus Rare /hpf (None) H 10/22/20 00:28 Urine Opiates Screen Not Detected (NotDetected) 10/22/20 12:24 Ur Oxycodone Screen Not Detected (NotDetected) 10/22/20 12:24 Urine Methadone Screen Not Detected (NotDetected) 10/22/20 12:24 Ur Propoxyphene Screen Not Detected (NotDetected) 10/22/20 12:24 Ur Barbiturates Screen Not Detected (NotDetected) 10/22/20 12:24 U Tricyclic Antidepress Not Detected (NotDetected) 10/22/20 12:24 Ur Phencyclidine Scrn Not Detected (NotDetected) 10/22/20 12:24 Ur Amphetamines Screen Not Detected (NotDetected) 10/22/20 12:24 U Methamphetamines Scrn Not Detected (NotDetected) 10/22/20 12:24 U Benzodiazepines Scrn Not Detected (NotDetected) 10/22/20 12:24 Urine Cocaine Screen Not Detected (NotDetected) 10/22/20 12:24 U Marijuana (THC) Screen Not Detected (NotDetected) 10/22/20 12:24 Serum Alcohol <10 mg/dL 10/22/20 00:28 Coronavirus (PCR) Not Detected (Not Detectd) 11/01/20 14:15 Allergies Allergy/AdvReac Type Severity Reaction Status Date / Time No Known Allergies Allergy Verified 10/22/20 15:04 Patient Condition at Discharge: Stable Plan - Discharge Summary Discharge Rx Participant: No New Discharge Prescriptions: New metFORMIN HCL [Glucophage] 500 mg PO BID 30 Days tab Atorvastatin [Lipitor] 40 mg PO HS 30 Days tablet Haloperidol Decanoate [Haldol D] 100 mg IM QMONTHLY #1 vial Discharge Medication List Atorvastatin [Lipitor] 40 mg PO HS 30 Days tablet 11/03/20 [Rx] Haloperidol Decanoate [Haldol D] 100 mg IM QMONTHLY #1 vial 11/03/20 [Rx] metFORMIN HCL [Glucophage] 500 mg PO BID 30 Days tab 11/03/20 [Rx] Follow up Appointment(s)/Referral(s): [facility] [Outside] - 11/10/20 (Dr. Teague on 11/10/2020 ) None,Stated [Primary Care Provider] - 1-2 days Patient Instructions/Handouts: Psychotic Disorder (DC) Activity/Diet/Wound Care/Special Instructions: Activity and diet as tolerated. Avoid the use of street drugs and alcohol. Take all medications as prescribed. When you are in need of refills on your medications please contact your medical provider and/or outpatient psychiatrist to have this done. Please go to scheduled outpatient appointment for aftercare. If symptoms return or become worse call the crisis line at and/or go to the nearest emergency room for an evaluation. Patient to follow up with primary care doctor regarding Diabetes Mellitus. You will need to monitor your blood glucose levels once daily, it is important to document these results in a journal to take with you to your next doctor's appointment. Additional medications may be needed to maintain control glucose levels. Discharge Disposition: HOME SELF-CARE
== END 2020-11-03 12:20 | DRG 885 ==
LOC: EC 23:04 → EEVIPCON 23:04 → 3MHU 10-22 12:27 → EDBD 10-22 12:27
PROVIDERS: ADMIT Psychiatry & Neurology Psychiatry; ATTEND Psychiatry & Neurology Psychiatry
DX: F20.9 Schizophrenia, unspecified (principal); F17.210 Nicotine dependence, cigarettes, uncomplicated; E11.9 Type 2 diabetes mellitus without complications; E78.5 Hyperlipidemia, unspecified; Z89.421 Acquired absence of other right toe(s); Z20.822 Contact with and (suspected) exposure to COVID-19
CPT/HCPCS: 36415; 80053; 80061; 80306; 80320; 81001; 83036; 85025; 87635; 99285